=== PATIENT | male | born 1965 | race Caucasian/White ===

== ENCOUNTER → 2023-07-21 | Outpatient (CLI) | payer BC | END | disposition home or self-care (01) | LOC: SHCH 10:53 | PROVIDERS: ATTEND Student in an Organized Health Care Education/Training Program | DX: R94.31 Abnormal electrocardiogram [ECG] [EKG] (principal) | CPT/HCPCS: 93306 ==

== ENCOUNTER 2023-11-22 13:55 | Emergency (ER) | payer BC ==
[~2023-11-22] VITALS: Ht 188 cm; Wt 62.6 kg
[~2023-11-22 13:55] MED LIST: ACET160L41 JT; AMMO385C4 TP; CLOT30SO2 TP; FAMO10VI2 IV; FAMO40SU3 JT; FURO10VI4 IV; HEPA500018 SQ; INSLAN SQ; INSU500V SQ; MELA5TAB66 PO; MERO1VIA23 IV; NYST15CR39 TP; PROMETHAZINE TP; [UNRECOGNIZED DRUG - CODE] IV
[2023-11-22 17:27] VITALS: BP 127/70; PULSE 87; RESP 18; O2SAT 99
== END 2023-11-22 17:27 | disposition home or self-care (01) ==
LOC: EDH 13:55
DX: Z93.1 Gastrostomy status (principal); Z09 Encounter for follow-up examination after completed treatment for conditions other than malignant neoplasm; E11.9 Type 2 diabetes mellitus without complications; Z88.8 Allergy status to other drugs, medicaments and biological substances; Z79.899 Other long term (current) drug therapy; Z79.4 Long term (current) use of insulin

== ENCOUNTER 2023-11-28 14:44 | Emergency (ER) | payer BC ==
[~2023-11-28] VITALS: Ht 188 cm; Wt 67.1 kg
[2023-11-28] MEDS: LIDOCAINE HCL 1% 20 ML VIAL INJ STA (16:00)
[2023-11-28] MEDS ORDERED: DIATR MEGLU/DIATRIZOATE SODIUM 30 ML BOTTLE ONE (17:00)
[2023-11-28 17:39] VITALS: BP 130/81; PULSE 80; RESP 18; O2SAT 95
[2023-11-28] MEDS ORDERED: FAMO-136 PO (17:46)
== END 2023-11-28 17:56 | disposition home or self-care (01) ==
LOC: EDH 14:44
DX: Z46.59 Encounter for fitting and adjustment of other gastrointestinal appliance and device (principal); E11.9 Type 2 diabetes mellitus without complications; Z79.899 Other long term (current) drug therapy; Z98.890 Other specified postprocedural states; Z88.1 Allergy status to other antibiotic agents; Z88.8 Allergy status to other drugs, medicaments and biological substances
CPT/HCPCS: 99283; 74018; Q9963

== ENCOUNTER 2023-12-12 09:00 | Observation (INO) | payer BC ==
[~2023-12-12] VITALS: Ht 188 cm; Wt 64.0 kg
[~2023-12-12 09:00] MED LIST changes: +FAMO-136 PO
[2023-12-12 09:31] LABS: BASOPHILS # (AUTO) 0.05 K/uL (0.00-0.20); BASOPHILS % (AUTO) 0.7 % (0.0-5.0); EOSINOPHILS # (AUTO) 0.12 K/uL (0.00-0.70); EOSINOPHILS % (AUTO) 1.7 % (0.0-8.0); IMMATURE GRANULOCYTE ABSOLUTE 0.02 K/uL (0-1); LYMPHOCYTES # (AUTO) 2.4 K/uL (1.0-4.8); LYMPHOCYTES % (AUTO) 34.1 % (21.0-51.0); MEAN CORPUSCULAR HGB CONC 32.1 g/dL (32.0-36.0); MEAN CORPUSCULAR VOLUME 81.1 fL (79-99); MONOCYTES # (AUTO) 0.7 K/uL (0.1-1.0); MONOCYTES % (AUTO) 10.5 % (3.0-13.0); NEUTROPHILS # (AUTO) 3.7 K/uL (1.8-7.7); NEUTROPHILS % (AUTO) 52.7 % (40.0-77.0); PLATELET COUNT (AUTO) 508 K/uL (130-400); RED BLOOD CELL COUNT(AUTO) 4.81 MIL/uL (4.50-6.20); RED CELL DISTRIBUTION WIDTH 19.9 % (11.0-15.5)
[2023-12-12 09:53] LABS: CREATININE 0.5 mg/dL (0.5-1.3); POTASSIUM 4.2 mmol/L (3.5-5.1)
[2023-12-12] MEDS: ORPHENADRINE CITRATE 30 MG/ML ML IM ONE (10:13)
[2023-12-12] MEDS: KETOROLAC 30MG VIAL (30MG/ML) IM ONE (10:14)
[2023-12-12] MEDS: EPINEPHRINE 1MG/10ML(1:10,000) 0.1 MG/ML SYG IVP ONE (11:57)
[2023-12-12] MEDS ORDERED: DOCUSATE SODIUM 100 MG CAP PO PRN (13:00)
[2023-12-12] MEDS ORDERED: KCL 20 MEQ ERTAB PO PRN (13:00)
[2023-12-12] MEDS ORDERED: ACETAMINOPHEN 325 MG TAB PO PRN ×2 (13:00)
[2023-12-12] MEDS ORDERED: ONDANSETRON 4MG INJ IV PRN (13:00)
[2023-12-12] MEDS ORDERED: POTASSIUM CHLORIDE 10% ELIXIR 20 MEQ/15 ML UDCUP PO PRN (13:00)
[2023-12-12] MEDS ORDERED: MAGNESIUM 2GM PREMIX 50ML 50 ML IV PRN (13:00)
[2023-12-12] MEDS ORDERED: DIPHENHYDRAMINE HCL 25 MG CAPSULE PO PRN (13:00)
[2023-12-12] MEDS ORDERED: GUAIFENESIN-DM 200/20 MG 10 ML PO PRN (13:00)
[2023-12-12] MEDS ORDERED: GUAIFENESIN SUGAR-FREE 100 MG/5 ML UDCUP PO PRN (13:00)
[2023-12-12] MEDS ORDERED: NITROGLYCERIN 0.4 MG SL TAB SL PRN (13:00)
[2023-12-12] MEDS ORDERED: ZOLPIDEM TARTRATE 5 MG TAB PO PRN (13:00)
[2023-12-12] MEDS ORDERED: LACTULOSE 20 GM/30 ML UDCUP PO PRN (13:00)
[2023-12-12] MEDS ORDERED: DiphenhydrAMINE HCL 50 MG/ML VIAL IV PRN (13:00)
[2023-12-12] MEDS ORDERED: POTASSIUM CHLORIDE 20MEQ/100ML 100 ML IV PRN ×2 (13:00)
[2023-12-12] MEDS ORDERED: HYDRALAZINE 25MG TABLET PO PRN (13:00)
[2023-12-12] MEDS ORDERED: POLYETHYLENE GLYCOL 3350 17 GM POWD.PACK PO PRN (13:00)
[2023-12-12] MEDS: ASPIRIN 325MG EC TAB PO ONE (13:05)
[2023-12-12 15:30] VITALS: BP 131/78; PULSE 63; RESP 18
[2023-12-12 15:46] VITALS: O2SAT 100
[2023-12-12] MEDS ORDERED: LIDOCAINE HCL 2% VISCOUS 30 ML, MAG/ALUM/SIMETH 30ML 30 ML, DICYCLOMINE HCL 20 MG PO PRN (16:30)
[2023-12-12] MEDS ORDERED: IBUPROFEN 200 MG TAB PO PRN (16:30)
[2023-12-12] MEDS ORDERED: TROLAMINE SALICYLATE CREAM 85 GM TUBE TP PRN (16:30)
[2023-12-12] MEDS ORDERED: DICL20GE TP (18:34)
[2023-12-12] MEDS ORDERED: CELE-146 PO (18:34)
[2023-12-12] MEDS ORDERED: COMPOUND PO MISCELLANEOUS 1 EACH MISC MISC PRN (19:00)
[2023-12-12] MEDS ORDERED: IOHEXOL 350 MG/ML 100ML INFUS..BTL IV ONE (19:41)
[2023-12-12] MEDS ORDERED: FAMOTIDINE 20MG TAB PO SCH (21:00)
[2023-12-13] MEDS ORDERED: ENOXAPARIN SODIUM 30 MG/0.3 ML SQ SCH (09:00)
[2023-12-13] MEDS ORDERED: ASPIRIN 81MG CHEW TAB PO SCH (09:00)
== END 2023-12-12 18:52 | disposition home or self-care (01) ==
LOC: EDH 09:00 → EDHIP 12:50 → 4DH 14:36
PROVIDERS: ADMIT Internal Medicine Critical Care Medicine; ATTEND Internal Medicine Critical Care Medicine
DX: M25.511 Pain in right shoulder (principal); M54.6 Pain in thoracic spine; D64.9 Anemia, unspecified; E11.65 Type 2 diabetes mellitus with hyperglycemia; R94.31 Abnormal electrocardiogram [ECG] [EKG]; I49.9 Cardiac arrhythmia, unspecified; E78.5 Hyperlipidemia, unspecified; I10 Essential (primary) hypertension; K21.9 Gastro-esophageal reflux disease without esophagitis; Z85.01 Personal history of malignant neoplasm of esophagus; Z90.81 Acquired absence of spleen; Z92.21 Personal history of antineoplastic chemotherapy; Z93.4 Other artificial openings of gastrointestinal tract status; Z79.899 Other long term (current) drug therapy; Z98.890 Other specified postprocedural states
CPT/HCPCS: 96374; 96372; 83735; 84484 ×2; 80048; 85025; 82948 ×2; 36415; 71045; 71275; 99291; 93005 ×2; G0378 ×6; J0171; J1885; Q9967; J2360

== ENCOUNTER 2024-02-08 08:05 | Day surgery (SDC) | payer BC ==
[2024-02-08] VITALS (10 sets, daily range): BP systolic 85–120; BP diastolic 55–86; PULSE 84–94; RESP 15–18
[~2024-02-08] VITALS: Ht 188 cm; Wt 62.9 kg
[~2024-02-08 08:05] MED LIST changes: +0.9%NACL 1000ML 1,000 ML IV ONE; -ACET160L41 JT; -AMMO385C4 TP; -CLOT30SO2 TP; +ESCI-8 PO; -FAMO-136 PO; -FAMO10VI2 IV; -FAMO40SU3 JT; -FURO10VI4 IV; -HEPA500018 SQ; -INSLAN SQ; -INSU500V SQ; -MELA5TAB66 PO; -MERO1VIA23 IV; -NYST15CR39 TP; +OMEP40CA21 PO; -PROMETHAZINE TP; +SUCR1ORA15 PO; -[UNRECOGNIZED DRUG - CODE] IV; +[UNRECOGNIZED DRUG - OTHER] PO
[2024-02-08] MEDS ORDERED: PROPOFOL 10 MG/ML 20ML VIAL IV ONE (10:47)
[2024-02-08] MEDS ORDERED: GLYCOPYRROLATE 0.2 MG/ML 5 ML VIAL ONE (10:47)
[2024-02-08] MEDS ORDERED: ONDANSETRON 4MG INJ ONE (10:47)
[2024-02-08] MEDS ORDERED: FENTANYL CITRATE PF 50 MCG/1 ML 2ML VIAL ONE (10:50)
== END 2024-02-08 12:10 | disposition home or self-care (01) ==
LOC: DAH 08:05
PROVIDERS: ATTEND Internal Medicine Gastroenterology
DX: K22.2 Esophageal obstruction (principal); I10 Essential (primary) hypertension; C15.9 Malignant neoplasm of esophagus, unspecified; E11.9 Type 2 diabetes mellitus without complications; Z90.49 Acquired absence of other specified parts of digestive tract; Z98.890 Other specified postprocedural states; Z88.1 Allergy status to other antibiotic agents; Z79.899 Other long term (current) drug therapy
CPT/HCPCS: 43220; 82948 ×2; 74018; J3010; J7030 ×2; J2704; J2405; J3490; A4620; A4215; A4223; A7002; A4222; A4221; A4663; A4606; C1726

== ENCOUNTER 2024-02-14 10:25 | Day surgery (SDC) | payer BC ==
[~2024-02-14] VITALS: Ht 188 cm; Wt 62.9 kg
[2024-02-14] VITALS (13 sets, daily range): BP systolic 108–140; BP diastolic 72–88; PULSE 76–91; RESP 15–17
[~2024-02-14 10:25] MED LIST changes: -0.9%NACL 1000ML 1,000 ML IV ONE
[2024-02-14 11:07] LABS: CHOLESTEROL 143 mg/dL (<200); HDL CHOLESTEROL 64 mg/dL (29-71); LDL DIRECT 73 mg/dL (0-99); TRIGLYCERIDES 57 mg/dL (30-200)
[2024-02-14] MEDS: 0.9%NACL 1000ML 1,000 ML IV ONE (11:33)
[2024-02-14] MEDS ORDERED: PROPOFOL 10 MG/ML 20ML VIAL IV ONE (13:09)
[2024-02-14] MEDS ORDERED: LIDOCAINE PF 100MG/5ML (2%) SYRINGE 5ML ONE (13:19)
== END 2024-02-14 15:20 | disposition home or self-care (01) ==
LOC: DAH 10:25 → ENDO 10:25
PROVIDERS: ATTEND Internal Medicine Gastroenterology
DX: K22.2 Esophageal obstruction (principal); C15.9 Malignant neoplasm of esophagus, unspecified; I10 Essential (primary) hypertension; E11.9 Type 2 diabetes mellitus without complications; F41.9 Anxiety disorder, unspecified; Z88.1 Allergy status to other antibiotic agents; Z90.49 Acquired absence of other specified parts of digestive tract; Z79.899 Other long term (current) drug therapy
CPT/HCPCS: 43220; 80061; 82948; 36415; J7030 ×2; J2001; J2704; C1726 ×2; A4620; A4215 ×2; A4223; A4657; A4222; A4221; A4663; A4606; J3490